=== PATIENT | male | born 1965 | race Caucasian/White ===

== ENCOUNTER 2019-08-20 11:39 | Emergency (ER) | payer OTHER ==
--- OUTSIDE RECORDS SUMMARY | 2019-08-20 11:45 | XMS REPORT | Continuity of Care Document ---
:1965 External Reference #:[id number] Author Name Kenny Gandhi M.D. 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 Problems Description No Information Available Social History Type Date Description Comments Sex Unknown Tobacco Use Start: Unknown Never Smoked Cigarettes ETOH Use 4-7 Days Per Week Recreational Drug Use Used Recreational Drugs In The Past Allergies, Adverse Reactions, Alerts Description No Known Drug Allergies Medications Active Medications SIG Qnty Indications Ordering Provider Date Crestor 1 by mouth every Unknown 20mg Tablets day Metoprolol 1 by mouth every Unknown 50mg Tablets ER day 24HR Singulair 1 by mouth every Unknown 10mg Tablets day Lisinopril 1 by mouth every Unknown 5mg Tablets day Meloxicam 1 by mouth every Unknown 7.5mg Tablets day Immunizations Description No Information Available Vital Signs Date Vital Result Comment 06/24/2019 12:57pm Weight 251.00 lb Height 68 inches 5'8" BMI (Body Mass Index) 38.2 kg/m2 BP Systolic 119 mmHg BP Diastolic 72 mmHg Heart Rate 67 /min O2 % BldC Oximetry 96 % Body Temperature 97.6 F Pain Level 0 05/25/2019 8:46am Weight 250.00 lb Height 68 inches 5'8" BMI (Body Mass Index) 38.0 kg/m2 BP Systolic 143 mmHg BP Diastolic 88 mmHg Heart Rate 66 /min O2 % BldC Oximetry 96 % Body Temperature 97.6 F Pain Level 0 Results Description No Information Available Procedures Date Code Description Status 05/25/2019 27433 Debridement Mastoidectomy Cavity, Simple Completed Medical Devices Description No Information Available Encounters Type Date Location Provider Dx Diagnosis Office Visit 05/25/2019 Main Office Kenny Gandhi M.D. 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 ear 05/25/2019 G47.33 Obstructive sleep apnea (adult) (pediatric) Kenny Gandhi M.D. Plan of Treatment No Information Available Functional Status Functional Condition Comment Date Status Glasses Active Mental Status Description No Information Available Referrals Description No Information Available
[2019-08-20 12:10] VITALS: BP 138/93
--- NOTE | 2019-08-20 12:57 | UC ---
Elbow Pain - HPI Summary HPI Summary: right forearm pain after slipping off tow ball of truck and grabbing a hold of tailgate and pulling on right forearm/elbow - History of Current Complaint Chief Complaint: UCUpperExtremity Stated Complaint: ARM INJURY Time Seen by Provider: 08/20/19 12:48 Hx Obtained From: Patient Onset/Duration: Days - 1, Traumatic, Still Present, Resolved - patient reports pain is less today than yesterday--some pain with flex Pain Intensity: 3 Pain Scale Used: 0-10 Numeric Location Of Pain: Is Discrete @ Character: Aching Aggravating Factor(s): Movement Alleviating Factor(s): Rest, Ice Associated Signs And Symptoms: Positive: Negative - Allergies/Home Medications Allergies/Adverse Reactions: Allergies Allergy/AdvReac Type Severity Reaction Status Date / Time No Known Allergies Allergy Verified 08/20/19 12:10 Home Medications: Home Medications Lisinopril TAB* [Prinivil TAB 10 MG*] 1 tab PO DAILY 08/20/19 [History Confirmed 08/20/19] Metoprolol Tartrate TAB* [Lopressor TAB*] 1 tab PO DAILY 08/20/19 [History Confirmed 08/20/19] Montelukast Sodium TAB* [Singulair 10 MG TAB*] 1 tab PO DAILY 08/20/19 [History Confirmed 08/20/19] Rosuvastatin Calcium [Crestor] 1 tab PO DAILY 08/20/19 [History Confirmed ] PMH/Surg Hx/FS Hx/Imm Hx Previously Healthy: No Endocrine History: Dyslipidemia Cardiovascular History: Hypertension - Surgical History Surgical History: Yes Surgery Procedure, Year, and Place: Right mastoid for infection - Family History Known Family History: Positive: None - Social History Occupation: Employed Full-time Lives: With Family Alcohol Use: Occasionally Substance Use Type: None Smoking Status (MU): Never Smoked Tobacco Review of Systems All Other Systems Reviewed And Are Negative: Yes Constitutional: Positive: Negative Skin: Positive: Negative Eyes: Positive: Negative ENT: Positive: Negative Respiratory: Positive: Negative Cardiovascular: Positive: Negative Gastrointestinal: Positive: Negative Genitourinary: Positive: Negative Motor: Positive: Negative Neurovascular: Positive: Negative Musculoskeletal: Positive: Myalgia - right forarm Neurological: Positive: Negative Psychological: Positive: Negative Is Patient Immunocompromised?: No Physical Exam Triage Information Reviewed: Yes Appearance: Well-Appearing, No Pain Distress, Well-Nourished Vital Signs: Initial Vital Signs Temp 98.3 F 08/20/19 12:05 Pulse 66 08/20/19 12:05 Resp 12 08/20/19 12:05 BP 138/93 08/20/19 12:05 Pulse Ox 98 08/20/19 12:05 Vital Signs Reviewed: Yes Eye Exam: Normal Eyes: Positive: Conjunctiva Clear ENT Exam: Normal ENT: Positive: Normal ENT inspection, Hearing grossly normal. Negative: Trismus , Muffled voice, Hoarse voice Dental Exam: Normal Neck exam: Normal Neck: Positive: Supple, Nontender Respiratory Exam: Normal Respiratory: Positive: Chest non-tender, No respiratory distress, No accessory muscle use Cardiovascular Exam: Normal Cardiovascular: Positive: RRR, Pulses Normal, Brisk Capillary Refill Musculoskeletal Exam: Normal Musculoskeletal: Positive: Strength Intact, ROM Intact, No Edema Neurological Exam: Normal Neurological: Positive: Alert, Muscle Tone Normal Psychological Exam: Normal Skin Exam: Normal Diagnostics - Radiology No standard instances Radiology Interpretation Completed By: Radiologist - no evidence of fracture Elbow Pain Course/Dx - Course Course Of Treatment: narda wrap applied n/m/c intact before and after narda wrap applied, rice, Tylenol , ibuprofen narda wrap follow with ortho if not resolved in 4-5 days - Differential Dx/Diagnosis Provider Diagnosis: Strain of unspecified muscles, fascia and tendons at forearm level, right arm, subsequent encounter Discharge ED - Sign-Out/Discharge Documenting (check all that apply): Patient Departure All imaging exams completed and their final reports reviewed: Yes - Discharge Plan Condition: Stable Disposition: HOME Patient Education Materials: Acetaminophen (By mouth), Ibuprofen (By mouth), Muscle Strain (ED), R.I.C.E. Treatment (ED) Referrals: Shar Jama MD [Medical Doctor] - 1 Week - Billing Disposition and Condition Condition: STABLE Disposition: Home - Attestation Statements Provider Attestation: I was available for consult. This patient was seen by the AMANDA. The patient was not presented to, seen by, or examined by me. -[facility]
== END 2019-08-20 13:06 | disposition home or self-care (01) ==
LOC: UCEAST 11:39
DX: S56.811D Strain of other muscles, fascia and tendons at forearm level, right arm, subsequent encounter (principal); I10 Essential (primary) hypertension; Z79.899 Other long term (current) drug therapy; W01.0XXD Fall on same level from slipping, tripping and stumbling without subsequent striking against object, subsequent encounter
CPT/HCPCS: 99212; G0463